=== PATIENT | female | born 1970 | race Caucasian/White ===

== ENCOUNTER 2018-02-25 21:43 | Emergency (ER) | payer BC ==
[2018-02-25 21:57] VITALS: BP 132/72
[2018-02-25] MEDS ORDERED: Cephalexin CAP* 500 MG PO ONE (22:08)
--- NOTE | 2018-02-25 22:11 | UC ---
Complaint Female HPI - HPI Summary HPI Summary: Patient complains of burning with urination and an increased urinary frequency starting today. Denies fever, N/V, abdominal pain, vaginal symptoms, low back pain, . Medical history is none. - History Of Current Complaint Chief Complaint: UCGU Stated Complaint: POSS UTI Time Seen by Provider: 02/25/18 21:54 Hx Obtained From: Patient Hx Last Menstrual Period: 1 WEEK AGO Onset/Duration: Sudden Onset, Lasting Hours Timing: Constant Severity Initially: Mild Severity Currently: Moderate Pain Intensity: 5 Pain Scale Used: 0-10 Numeric Character: Burning Associated Signs And Symptoms: Positive: Negative - Allergies/Home Medications Allergies/Adverse Reactions: Allergies Allergy/AdvReac Type Severity Reaction Status Date / Time erythromycin base Allergy Intermediate N/V Verified 02/25/18 21:57 Home Medications: Home Medications Control* 1 tab PO DAILY 02/25/18 [History Confirmed 02/25/18] Multivitamin [Multivitamins] 1 cap PO DAILY 02/25/18 [History Confirmed 02/25/18 ] Urostat* 1 tab PO ONCE PRN 02/25/18 [History Confirmed 02/25/18] PMH/Surg Hx/FS Hx/Imm Hx Other History Of: Negative For: HIV, Hepatitis B, Hepatitis C, Anticoagulant Therapy - Surgical History Surgical History: Yes Surgery Procedure, Year, and Place: C Section - Family History Known Family History: Positive: Hypertension Negative: Cardiac Disease - Social History Alcohol Use: Weekly Substance Use Type: None Smoking Status (MU): Never Smoked Tobacco Review of Systems Constitutional: Negative Skin: Negative Eyes: Negative ENT: Negative Respiratory: Negative Cardiovascular: Negative Gastrointestinal: Negative Genitourinary: Dysuria, Frequency, Urgency Motor: Negative Neurovascular: Negative Musculoskeletal: Negative Neurological: Negative Psychological: Negative Is Patient Immunocompromised?: No All Other Systems Reviewed And Are Negative: Yes Physical Exam Triage Information Reviewed: Yes Appearance: Well-Appearing Vital Signs: Initial Vital Signs Temp 98.4 F 02/25/18 21:53 Pulse 69 02/25/18 21:53 Resp 16 02/25/18 21:53 BP 132/72 02/25/18 21:53 Pulse Ox 96 02/25/18 21:53 Vital Signs Reviewed: Yes Eye Exam: Normal ENT Exam: Normal Dental Exam: Normal Neck exam: Normal Respiratory Exam: Normal Cardiovascular Exam: Normal Abdominal Exam: Normal Musculoskeletal Exam: Normal Neurological Exam: Normal Psychological Exam: Normal Skin Exam: Normal Complaint Female Dx - Course Course Of Treatment: Vital signs within normal limits. UA nonviable due to Azo. Will culture. Give prescription for Keflex for symptoms. - Differential Dx/Diagnosis Provider Diagnoses: Dysuria Discharge - Sign-Out/Discharge Documenting (check all that apply): Discharge/Admit/Transfer - Discharge Plan Condition: Stable Disposition: HOME Prescriptions: Cephalexin CAP* [Keflex CAP*] 500 mg PO TID 10 Days #30 cap Patient Education Materials: Dysuria (ED), Urinary Urgency and Frequency (DC) Referrals: Tina Dimas MD [Primary Care Provider] - Additional Instructions: Follow-up with primary care. - Billing Disposition and Condition Condition: STABLE Disposition: HOME
== END 2018-02-25 22:16 | disposition home or self-care (01) ==
LOC: UCEAST 21:43
DX: R30.0 Dysuria (principal); R35.0 Frequency of micturition; Z88.1 Allergy status to other antibiotic agents
CPT/HCPCS: 87086; 99212; A9270-GY; G0463

== ENCOUNTER 2018-02-27 16:12 | Emergency (ER) | payer BC ==
[2018-02-27 16:33] VITALS: BP 157/102
--- NOTE | 2018-02-27 17:37 | UC ---
Syncope/New Syncope HPI - HPI Summary HPI Summary: Patient is an otherwise healthy 47-year-old female presenting to the after an episode approximately 2 hours prior to arrival which she describes as a near syncopal episode. She is never had this before. She endorses a ringing in her ears, decreased hearing, unable to focus, lightheaded and was unable to focus on what was in front of her at the time. Symptoms lasted for approximately 2 minutes. She states she still feels a little bit off, but feels much improved. She was started on Keflex 2 days ago for a UTI, but otherwise takes no medications. Denies any history of chest pain, shortness of breath, hypertension or other cardiac diagnoses. She generally has lower blood pressure. She states she was able to eat and drink today as normal and denies any other daily activities which are out of the ordinary for her. - History Of Current Complaint Chief Complaint: UCDizziness Stated Complaint: HIGH BLOOD PRESSURE Time Seen by Provider: 02/27/18 16:39 Hx Obtained From: Patient Hx Last Menstrual Period: 1 WEEK AGO ?: No Onset/Duration: Sudden Onset Timing: Constant Frequency: Episodes x___ - 1, Episodes Lasting ____ (in Mins/Days/Weeks/Years) - 2 minutes Associated Head Trauma: No Pain Intensity: 0 Pain Scale Used: 0-10 Numeric Aggravating Factor(s): Nothing Alleviating Factor(s): Nothing Associated Signs And Symptoms: Positive: Negative - Risk Factors Cardiac Risk Factors: Negative Dysrhythmia Risk Factors: Negative Risk Factor(s): Negative - Allergies/Home Medications Allergies/Adverse Reactions: Allergies Allergy/AdvReac Type Severity Reaction Status Date / Time erythromycin base Allergy Intermediate N/V Verified 02/25/18 21:57 PMH/Surg Hx/FS Hx/Imm Hx Previously Healthy: Yes Other History Of: Negative For: HIV, Hepatitis B, Hepatitis C, Anticoagulant Therapy - Surgical History Surgical History: Yes Surgery Procedure, Year, and Place: C Section - Family History Known Family History: Positive: Hypertension Negative: Cardiac Disease - Social History Occupation: Employed Full-time Lives: With Family Alcohol Use: Weekly Substance Use Type: None Smoking Status (MU): Never Smoked Tobacco Review of Systems Constitutional: Negative Skin: Negative Respiratory: Negative Cardiovascular: Negative Motor: Negative Neurovascular: Negative Musculoskeletal: Negative Neurological: Negative Is Patient Immunocompromised?: No All Other Systems Reviewed And Are Negative: Yes Physical Exam Triage Information Reviewed: Yes Appearance: Well-Appearing, No Pain Distress, Well-Nourished Vital Signs: Initial Vital Signs Temp 97.5 F 02/27/18 16:30 Pulse 66 02/27/18 16:30 Resp 16 02/27/18 16:30 BP 157/102 02/27/18 16:30 Pulse Ox 99 02/27/18 16:30 Vital Signs Reviewed: Yes Eye Exam: Normal Eyes: Positive: Conjunctiva Clear Neck exam: Normal Neck: Positive: Supple Respiratory Exam: Normal Respiratory: Positive: Chest non-tender Cardiovascular Exam: Normal Musculoskeletal Exam: Normal Musculoskeletal: Positive: Strength Intact Psychological: Positive: Normal Response To Family, Decreased Age Appropriate Behavior Skin Exam: Normal Syncope Course/Dx - Course Course Of Treatment: During the course of treatment, the patient is evaluated for a near syncopal episode. Likely a vasovagal response. She is noted to have high blood pressure on arrival at 157/102. 2 days ago she was seen in the ED and her BP was 137/73. She states she is feeling better now. She was able to eat and drink okay all day and denies any syncope, nausea, headache, visual changes, blurry vision or double vision. She does not take any medications, however she was started on Keflex 2 days ago for a UTI. EKG obtained and shows normal sinus rhythm with bradycardia. She is feeling much improved and I discussed at length the possibility that this was a vasovagal response. She generally has low blood pressure and denies any cardiac symptoms or cardiac etiologies family or otherwise. She is encouraged to follow up with her PCP. - Differential Dx/Diagnosis Provider Diagnoses: Vasovagal reaction Discharge - Sign-Out/Discharge Documenting (check all that apply): Discharge/Admit/Transfer - Discharge Plan Condition: Stable Disposition: HOME Referrals: Tina Dimas MD [Primary Care Provider] - Additional Instructions: Please go to the ED for any worsening or changing symptoms I believe you may have had a vasovagal reaction which can take many forms and is usually self-limiting This could have been a reaction d/t the medication change or dehydration, stress , overheating, etc. Drink plenty of water Follow up with PCP - Billing Disposition and Condition Condition: STABLE Disposition: HOME
== END 2018-02-27 17:05 | disposition home or self-care (01) ==
LOC: UCEAST 16:12
DX: R55 Syncope and collapse (principal); Z88.1 Allergy status to other antibiotic agents
CPT/HCPCS: 93005; 99211; G0463